=== PATIENT | male | born 1995 | race Caucasian/White ===

== ENCOUNTER 2018-06-24 17:30 | Inpatient (IN) | payer SELFPAY ==
[~2018-06-24] VITALS: Ht 165.1 cm; Wt 63.5 kg
--- NOTE | 2018-06-24 17:40 | NUR ---
CALLLED FOR TRIAGE AND UNABLE TO LOCATE PT IN WAITING ROOM
--- NOTE | 2018-06-24 18:10 | NUR ---
CALLED FOR TRIAGE, UNABLE TO LOCATE PT IN WAITING ROOM
--- NOTE | 2018-06-24 18:25 | NUR ---
CALLED FOR TRIAGE, UNABLE TO LOCATE PT IN ER WAITING ROOM
--- NOTE | 2018-06-24 18:53 | NUR ---
PT RETURNED TO ER WONDERING IF HIS NAME HAD BEEN CALLED. WILL TRIAGE SOON
[2018-06-24 19:02] VITALS: BP_SYST 120
--- NOTE | 2018-06-24 19:06 | NUR ---
Pt c/o redness, swelling, and open wound to right elbow x 3 days. Wound ~1cm diameter, scan serous fluid noted. Pt states that he noticed a black dot, didn't pay any attention to it, then 3 days ago, pulled off jacked and saw open wound.
--- NOTE | 2018-06-24 19:06 | NUR ---
Patient to ER bed 5 to gown for evaluation. Side rails up.
--- NOTE | 2018-06-24 19:20 | NUR ---
ER Dr. Arias at bedside examining patient.
[2018-06-24] MEDS ORDERED: CLINDAMYCIN 900 mg/50mL D5W 50 ML IV ONE ×2 (19:30→21:43)
[2018-06-24] MEDS ORDERED: NS 1000 ML IV.SOLN IV ONE (19:30)
[2018-06-24] MEDS ORDERED: IBUPROFEN 600 MG TABLET PO ONE (19:30)
--- NOTE | 2018-06-24 19:50 | NUR ---
# 20 gauge angiocath placed to LFA. Use of asceptic technique. Opsite placed over site. Blood return noted. Blood for lab drawn from site. Flushed with 10 cc of normal saline. No evidence of infiltration noted. Patient tolerated well.
[2018-06-24] MEDS ORDERED: ACETAMINOPHEN 325 MG TABLET PO PRN (20:15)
[2018-06-24] MEDS ORDERED: HYDROcodone/ACETAMIN 10-325 MG TAB PO SCH (20:30)
[2018-06-24] MEDS ORDERED: ONDANSETRON HCL 4 MG/2 ML VIAL IVP PRN (20:30)
--- NOTE | 2018-06-24 20:30 | NUR ---
Patient will be admitted to care of Tele. Admitted to Tele unit. Will go to room 117B. Belongings list completed. Summary report printed. Report will be given at bedside.
[2018-06-24 20:43] LABS: BASOPHILS % (AUTO) 0.5 % (0.0-2.0); EOSINOPHILS % (AUTO) 0.4 % (0.0-4.0); HEMATOCRIT 40.9 % (36-54); HEMOGLOBIN 13.8 g/dL (14.0-18.0); LYMPHOCYTES # (AUTO) 1.6 K/uL (1.0-5.5); LYMPHOCYTES % (AUTO) 15.6 % (20.5-51.5); MEAN CORPUSCULAR HEMOGLOBIN 32 pg (27-31); MEAN CORPUSCULAR HGB CONC 34 % (32-36); MEAN CORPUSCULAR VOLUME 95 fL (79.0-98.0); MONOCYTES # (AUTO) 0.6 K/uL (0.0-1.0); MONOCYTES % (AUTO) 5.9 % (1.7-9.3); NEUTROPHILS # (AUTO) 7.9 K/uL (1.8-7.7); NEUTROPHILS % (AUTO) 77.6 % (40.0-70.0); PLATELET COUNT (AUTO) 276 K/uL (130-430); RED BLOOD CELL COUNT(AUTO) 4.31 MIL/uL (4.2-6.2); RED CELL DISTRIBUTION WIDTH 13.2 % (9.0-15.0); WHITE BLOOD COUNT (AUTO) 10.1 K/uL (4.8-10.8)
--- NOTE | 2018-06-24 20:52 | NUR ---
ADMISSION NOTE Received patient from ER via zully, received report from Floyd SPEAR. Patient admitted with diagnosis of Cellulitis. Patient oriented to hospital routine, call light, toileting and safety-patient verbalized understanding.
[2018-06-24 20:53] LABS: CALCIUM 8.9 mg/dL (8.4-11.0); CREATININE 0.89 mg/dL (0.55-1.30); POTASSIUM 3.4 mmol/L (3.5-5.1)
--- NOTE | 2018-06-24 20:53 | NUR ---
CONSULTATION PAGED/CALLED Reason for Consultation: CELLULITIS Person Who was Notified:PEDRO Consulting Physician: DR. HAMPTON Passenger Conductor Specialty: ID Ordering Physician: ROSALIE
[2018-06-24 20:58] LABS: ALBUMIN 3.7 g/dL (3.4-4.8); TOTAL BILIRUBIN 1.1 mg/dL (0.0-1.0)
[2018-06-24 21:03] VITALS: BP_SYST 133
--- NOTE | 2018-06-24 21:40 | NUR ---
SCHEDULED NORCO PT GIVEN SCHEDULED NORCO 10-325 MG PO. MEDICATION ACTION AND POTENTIAL SIDE EFFECTS EXPLAINED, PT VERBALIZED UNDERSTANDING. PT ORIENTED TO USE OF CALL LIGHT AND ENCOURAGED TO CALL FOR ANY ASSISTANCE. SAFETY PRECAUTIONS IN PLACE. WILL MONITOR.
[2018-06-24] MEDS: NACL 0.9% 1,000 ML IV SCH (21:43)
--- NOTE | 2018-06-24 21:43 | NUR ---
SCHEDULED LEVAQUIN PT GIVEN SCHEDULED LEVAQUIN IVPB. MEDICATION AND POTENTIAL SIDE EFFECTS EXPLAINED. PT VERBALIZED UNDERSTANDING. NO S/S OF ACUTE DISTRESS, BREATHING IS UNLABORED TO ROOM AIR. SAFETY MAINTAINED. WILL MONITOR.
--- NOTE | 2018-06-24 22:30 | NUR ---
SNACKS/JUICE PT BROUGHT SANDWICHES, SUGAR-FREE CHOCOLATE PUDDING, AND APPLE JUICE PER REQUEST.
[2018-06-25] VITALS: BP_SYST 122
--- NOTE | 2018-06-25 00:52 | NUR ---
RN ROUNDS: PT RESTING IN BED WITH EYES CLOSED. VISIBLE SYMMETRICAL RISE AND FALL OF CHEST TO ROOM AIR. NO S/S OF ACUTE DISTRESS NOTED. IVF ARE INFUSING ORDERED WITH NO SIGN OF INFILTRATION AT IV SITE. PT APPEARS COMFORTABLE AT THIS TIME. SAFETY MAINTAINED. WILL MONITOR.
[2018-06-25] MEDS: NACL 0.9% 1,000 ML IV SCH ×3 (03:13→19:35)
--- NOTE | 2018-06-25 03:13 | NUR ---
IVF BAG CHANGED NEW BAG OF NORMAL SALINE HUNG AND INFUSING AT ORDERED RATE. NO SIGN OF INFILTRATION AT IV SITE. PT IS RESTING IN BED WITH EYES CLOSED. VISIBLE RISE AND FALL OF CHEST BILATERALLY TO ROOM AIR. NO S/S OF ACUTE DISTRESS, NO SOB NOTED. PT APPEARS COMFORTABLE. SAFETY PRECAUTIONS IN PLACE: BED LOCKED IN LOWEST POSITION, CALL LIGHT WITH PT, SIDE RAILS UP X2, PERSONAL ITEMS WITHIN REACH. WILL MONITOR.
[2018-06-25] MEDS: CLINDAMYCIN 900 mg/50mL D5W 50 ML IV SCH ×3 (06:02→22:55)
--- NOTE | 2018-06-25 06:17 | NUR ---
SCHEDULED CLIOCIN SCHEDULED CLIOCIN ADMINISTERED. PT RESTING IN BED. NO S/S OF DISTRESS, PT REPOSITIONED HIMSELF IN BED FOR COMFORT. SAFETY MAINTAINED. WILL MONITOR.
--- NOTE | 2018-06-25 06:48 | NUR ---
CLOSING NOTE PT RESTING IN BED, PT REPORTED HAVING SLEPT WELL. DRESSING TO ELBOW IS CLEAN, DRY AND INTACT. IV FLUIDS ARE INFUSING AT ORDERED RATE WITH NO SIGN OF INFILTRATION AT IV SITE. BREATHING IS EVEN AND UNLABORED TO ROOM AIR. NO S/S OF ACUTE DISTRESS. ALL NEEDS MET DURING SHIFT. SAFETY MAINTAINED. WILL ENDORSE CARE TO DAY SHIFT RN.
--- NOTE | 2018-06-25 07:55 | NUR ---
INITIAL NOTE RECEIVED PT IN BED, NO S/S OF DISTRESS OR SOB NOTED, PT HAS NO C/O PAIN AT THIS TIME, PT IN STABLE CONDITION. PT AAOX4, VERBAL. IV CATHETER PATENT, NO SIGNS OF INFECTION OR INFILTRATION NOTED. PT IN STABLE CONDITION, BED AT LOWEST POSITION, CALL LIGHT WITHIN REACH, WILL CONTINUE TO MONITOR PT FOR ANY CHANGES. FALL PRECAUTIONS IN PLACE.
--- NOTE | 2018-06-25 08:10 | NUR ---
CALL DR ROSALIE WORTHINGTON, AWAITING CALL BACK TO NOTIFY HIM THAT PT HAS PAIN ON LEFT ARM AND THAT IT IS SWOLLEN AND WARM TO TOUCH, PER PT HE HAD BLOOD DRAWN FROM THAT SITE AT [facility] A FEW DAYS AGO. Addendum: 06/25/18 at 0838 by Karina Perkins RN SPOKE WITH AND HE GAVE NEW ORDERS FOR PAIN MEDICATION AND ORDERED X RAY FOR LEFT ARM, PT ABLE TO MOVE FINGERS ON LEFT HAND, PULSE PALPABLE, SENSATION PRESENT, CAPILLARY REFILL LESS THAN 3 SECONDS, PULSE PALPABLE, NO PARALYSIS OR TINGLING PER PT.
[2018-06-25 08:13] VITALS: BP_SYST 138
[2018-06-25] MEDS: HYDROcodone/ACETAMIN 10-325 MG TAB PO PRN ×3 (08:52→21:01)
--- NOTE | 2018-06-25 10:20 | NUR ---
ROUNDS PT IN BED, NO S/S OF DISTRESS OR SOB NOTED, PT HAS NO C/O PAIN AT THIS TIME. PT IN STABLE CONDITION, PT WATCHING TV. WILL CONTINUE TO MONITOR PT FOR ANY CHANGES.
--- NOTE | 2018-06-25 10:41 | NUR ---
IV CATHETER PT REFUSED TO HAVE IV CATHETER CHANGED ON LEFT FOREARM DUE TO SWELLING AND RESULTS OF X RAY, NOTED NO SIGNS OF INFECTION OR INFILTRATION ON THE CATHETER SITE, THE SWELLING ABOVE THE FOREARM. EDUCATED PT ON CHANGING IT DUE TO POSSIBLY CAUSE OF THE SWELLING. PT VERBALIZED UNDERSTANDING BUT REFUSED.
--- NOTE | 2018-06-25 10:53 | NUR ---
SCD PT REFUSED TO HAVE SCD'S IN PLACE, EDUCATED PT ON IMPORTANCE ON USE OF SCD'S TO PREVENT DVT, PT STATED THAT HE WALKS SO DOES NOT NEED IT. PT VERBALIZED UNDERSTANDING BUT CONTINUES TO REFUSE.
--- NOTE | 2018-06-25 11:09 | NUR ---
WOUND CULTURE WOUND CULTURE SENT TO THE LAB OF WOUND ON RIGHT ELBOW
[2018-06-25] MEDS: VANCOMYCIN HCL 750 MG in NS 250 ML IV SCH ×2 (13:04→20:42)
--- NOTE | 2018-06-25 13:25 | NUR ---
VISITORS PT HAS VISITORS AT BEDSIDE, ASKED VISITORS IF THEY ARE LEAVING ANY NEW BELONGINGS FOR PT AND THEY STATED NO. CHARGE NURSE MADE AWARE.
[2018-06-25 13:50] VITALS: BP_SYST 145
--- NOTE | 2018-06-25 14:05 | NUR ---
ROUNDS PT IN BED, NO S/S OF DISTRESS OR SOB NOTED, PT HAS NO C/O PAIN AT THIS TIME. PT IN STABLE CONDITION, PT TALKING TO VISITORS AT BEDSIDE. WILL CONTINUE TO MONITOR PT FOR ANY CHANGES.
--- NOTE | 2018-06-25 14:10 | NUR ---
SMOKING PT SIGNED WAIVER FOR SMOKING, PT WENT OUTSIDE WITH FITTING ROOM ASSOCIATE AND ONE VISITOR TO SMOKE. Addendum: 06/25/18 at 1444 by Karina Perkins RN PT BACK FROM SMOKING WITH FITTING ROOM ASSOCIATE
--- NOTE | 2018-06-25 14:40 | NUR ---
WOUND EVALUATION: Late note for 1440 secondary to patient care. Wound Consult received from Dr. Millan. Thank you, Dr. Millan, for the consult. Patient received in a Merigold Bed with a mattress, awake, alert, and oriented. Patient is able to turn in bed independently. Naseem Score is a 22. Unknown past medical history. Admitted for progressively worsening, constant right elbow pain that is radiating to the right forearm with associated erythema and drainage. Recent Labs: CBC 10.1, RBC 4.31, hemoglobin 13.8, hematocrit 40.9, sodium 131, potassium 3.4, glucose 126, AST 90, ALT 591. Microbiology: Blood culture results 2 in progress. Wound culture results in progress. Intrinsic factors that delay wound healing: Hyperglycemia. Extrinsic factors that delay wound healing: None. Wound Assessment: 1. Right lateral elbow: Wound, probable abscess, present on admission. Wound bed has 95% yellow slough, 5% black tissue. No odor, scant yellow purulent drainage. Periwound intact. Surrounding tissue is erythematous. 1.5 cm x 1.3 cm. Recommend: Cleanse wound with normal saline. Apply sure prep to periwound. Apply Sultana sorb gel to wound bed, then hydrogel. Cover with foam dressing needed. Perform wound care daily, and as needed for dressing soiling or dislodgment. Elevate bilateral upper extremities for at least 30 minutes twice a day. 2. Left upper arm area: Erythema and mild calor, present on admission. Patient reports a lot of pain in this area, and says he can't move his arm. Patient was able to lift arm into flexion for assessment. No odor, no drainage. Erythematous area outlined with dots from a marker. Recommend: No dressing needed. Continue to monitor site every shift for worsening condition. Elevate bilateral upper extremities for at least 30 minutes twice a day. Also recommend: Encourage patient to self reposition every 2 hours with pillow support. Offload, elevate and float bilateral heels with pillows. Perform skin care and monitor skin integrity Q shift.
[2018-06-25 17:11] VITALS: BP_SYST 134
--- NOTE | 2018-06-25 18:30 | NUR ---
CLOSING NOTE PT IN BED, NO S/S OF DISTRESS OR SOB NOTED, PT HAS NO C/O PAIN AT THIS TIME, PT IN STABLE CONDITION. PT AAOX4, VERBAL. IV CATHETER PATENT, NO SIGNS OF INFECTION OR INFILTRATION NOTED. PT IN STABLE CONDITION, BED AT LOWEST POSITION, CALL LIGHT WITHIN REACH, WILL ENDORSE CARE OF PT TO INCOMING NURSE. FALL PRECAUTIONS IN PLACE.
--- NOTE | 2018-06-25 19:28 | NUR ---
Pt was received standing at his bedside fully awake, alert and oriented x3. No c/o pain or discomfort and no acute distress noted at this time. IV is intact in LFA without any signs of infiltration. Fall and safety precautions are in place. Pt was instructed to call for assistance as needed and pt verbalized understanding.
[2018-06-25 20:00] VITALS: BP_SYST 152
--- NOTE | 2018-06-25 23:00 | NUR ---
Pt is resting comfortably in bed. IVF is infusing well in LFA. Call light is with pt and bed is in the lowest and locked positions.
[2018-06-26] VITALS: BP_SYST 134
--- NOTE | 2018-06-26 01:45 | NUR ---
Pt is awake and being visited by his sister who brought outside food for their consumption. IVF is infusing well in [facility].
[2018-06-26] MEDS: NACL 0.9% 1,000 ML IV SCH ×2 (01:47→15:03)
[2018-06-26] MEDS: VANCOMYCIN HCL 750 MG in NS 250 ML IV SCH (03:21)
[2018-06-26] MEDS: HYDROcodone/ACETAMIN 10-325 MG TAB PO PRN ×3 (03:29→20:13)
--- NOTE | 2018-06-26 03:29 | NUR ---
[place] 10/325mg 1 tablet was given po per pt's request for c/o pain in right elbow and left upper arm with relief. IVF is infusing well in LFA. Fall and safety precautions are in place.
[2018-06-26] MEDS: CLINDAMYCIN 900 mg/50mL D5W 50 ML IV SCH ×3 (06:14→22:57)
--- NOTE | 2018-06-26 06:30 | NUR ---
Pt is awake and resting comfortably in bed. All pt's needs were attended to. IVF is infusing well in LFA. Will endorse to day shift nurse.
[2018-06-26 07:02] LABS: BASOPHILS % (AUTO) 0.3 % (0.0-2.0); EOSINOPHILS # (AUTO) 0.3 K/uL (0.0-0.4); EOSINOPHILS % (AUTO) 3.3 % (0.0-4.0); LYMPHOCYTES # (AUTO) 2.3 K/uL (1.0-5.5); LYMPHOCYTES % (AUTO) 28.1 % (20.5-51.5); MEAN CORPUSCULAR HEMOGLOBIN 33 pg (27-31); MEAN CORPUSCULAR HGB CONC 34 % (32-36); MEAN CORPUSCULAR VOLUME 95 fL (79.0-98.0); MONOCYTES # (AUTO) 0.7 K/uL (0.0-1.0); MONOCYTES % (AUTO) 9.1 % (1.7-9.3); NEUTROPHILS # (AUTO) 4.9 K/uL (1.8-7.7); NEUTROPHILS % (AUTO) 59.2 % (40.0-70.0); PLATELET COUNT (AUTO) 222 K/uL (130-430); RED BLOOD CELL COUNT(AUTO) 3.99 MIL/uL (4.2-6.2); RED CELL DISTRIBUTION WIDTH 13.1 % (9.0-15.0); WHITE BLOOD COUNT (AUTO) 8.2 K/uL (4.8-10.8)
--- NOTE | 2018-06-26 07:32 | NUR ---
INITIAL NOTE RECEIVED PT IN BED, NO S/S OF DISTRESS OR SOB NOTED, PT HAS NO C/O PAIN AT THIS TIME, PT IN STABLE CONDITION. PT AAOX4, VERBAL. IV CATHETER PATENT, NO SIGNS OF INFECTION OR INFILTRATION NOTED. PT IN STABLE CONDITION, BED AT LOWEST POSITION, CALL LIGHT WITHIN REACH, WILL CONTINUE TO MONITOR PT FOR ANY CHANGES. FALL PRECAUTIONS IN PLACE. PT REFUSED TO HAVE SCD'S IN PLACE, EDUCATED PT ON IMPORTANCE TO PREVENT DVT, PT VERBALIZED UNDERSTANDING BUT CONTINUES TO REFUSE. Addendum: 06/26/18 at 0733 by Karina Perkins RN IV ON LEFT FOREARM, NO INFILTRATION NOTED, PATENT.
[2018-06-26 07:43] LABS: ALBUMIN 2.6 g/dL (3.4-4.8); CALCIUM 8.6 mg/dL (8.4-11.0); CREATININE 0.59 mg/dL (0.55-1.30); POTASSIUM 3.1 mmol/L (3.5-5.1); TOTAL BILIRUBIN 0.4 mg/dL (0.0-1.0)
[2018-06-26 08:22] VITALS: BP_SYST 109
[2018-06-26] MEDS: SILVER 44.4 ML GEL.ER.ML. TP SCH (10:09)
--- NOTE | 2018-06-26 10:54 | NUR ---
ROUNDS PT IN BED, NO S/S OF DISTRESS OR SOB NOTED, PT HAS NO C/O PAIN AT THIS TIME, PT IN STABLE CONDITION, PT RESTING COMFORTABLY, WILL CONTINUE TO MONITOR PT FOR ANY CHANGES.
--- NOTE | 2018-06-26 11:44 | NUR ---
Rubber Goods Inspector Tester Note SPED TEACHER met with patient at bedside due to history of meth use and conducted a Discharge Plan Assessment. Patient is alert and oriented. SPED TEACHER suspected patient may be homeless, but patient insists he lives at the address on the face sheet with a roommate, [address] [facility], [address] SPED TEACHER explained that this was 39 miles or one hour away, and we could not provide transportation there. Patient was unsure if his friends or family could transport him. He has no money but could use a bus pass. He stated that he has friends and family that offer to help, but they have problems of their own. He provided a person to notify: Makenna Valdes, sister, , which was sent to Admitting to add to patient's face sheet. Patient stated he had no primary physician and accepted the list of [facility] clinics on the homeless resource sheet, so that he could obtain follow up care. Patient stated he has no money for medication. SPED TEACHER discussed with Yolette SPEAR the possibility of discharging patient with the medication as prescribed. Patient admitted to using meth in the past but denies that he is currently using and did not accept substance abuse resources. Rubber Goods Inspector Tester/Case Management/Discharge Planning will remain available.
[2018-06-26 12:26] VITALS: BP_SYST 121
--- NOTE | 2018-06-26 12:31 | NUR ---
Dietitian Recommendations *Recommend Regular diet w/ Michael BID. (Provides 160 kcal and 5 gm protein daily). Please see Nutritional Assessment for details. SHUKRI, RD
[2018-06-26] MEDS: VANCOMYCIN HCL 1,000 MG in NS 250 ML IV SCH ×2 (12:54→20:13)
[2018-06-26 16:09] VITALS: BP_SYST 140
[2018-06-26] MEDS ORDERED: POTASSIUM CHLORIDE 20 MEQ TAB.PRT.SR PO ONE (17:15)
--- NOTE | 2018-06-26 17:19 | NUR ---
CONSULT GI ABN LFT DR HUI [phone] DR COLINDRES POKER SUPERVISOR S/[facility] EXCHANGE
--- NOTE | 2018-06-26 18:27 | NUR ---
CLOSING NOTE PT IN BED, NO S/S OF DISTRESS OR SOB NOTED, PT HAS NO C/O PAIN AT THIS TIME, PT IN STABLE CONDITION. PT AAOX4, VERBAL. IV CATHETER PATENT, NO SIGNS OF INFECTION OR INFILTRATION NOTED, PATENT, NO REDNESS ON SITE NOTED, NO CHANGE IN REDNESS ON LEFT UPPER ARM. PT IN STABLE CONDITION, BED AT LOWEST POSITION, CALL LIGHT WITHIN REACH, WILL ENDORSE CARE OF PT TO INCOMING NURSE. FALL PRECAUTIONS IN PLACE. PT REFUSED TO HAVE SCD'S IN PLACE, EDUCATED PT ON IMPORTANCE TO PREVENT DVT, PT VERBALIZED UNDERSTANDING BUT CONTINUES TO REFUSE.
--- NOTE | 2018-06-26 19:25 | NUR ---
Pt was received lying comfortably in bed fully awake, alert and oriented x3. No c/o pain or discomfort and no acute distress noted at this time. Saline lock is intact in LFA without any signs of infiltration. Fall and safety precautions are in place. Pt was instructed to call for assistance as needed and pt verbalized understanding.
[2018-06-26 20:00] VITALS: BP_SYST 150
[2018-06-26] MEDS: POTASSIUM CHLORIDE 20 MEQ TAB.PRT.SR PO SCH (20:11)
--- NOTE | 2018-06-26 20:13 | NUR ---
[place] 10/325mg 1 tablet was given po per pt's request for c/o pain in rt elbow and left upper arm with relief.
--- NOTE | 2018-06-26 20:55 | NUR ---
Rt elbow dressing change was done per pt's request due to small soilage noted on the dressing. Wound was noted with small amount of yellowish purulent drainage. Periwound is intact. Wound bed has 95% yellow tissue and 5% black tissue. No odor noted. Surrounding tissue noted with erythema. Wound was cleansed with normal saline and pat dried. Cara wound was cleansed with sure prep. Silvasorb gel was applied to wound bed, followed by hydrogel to wound bed and wound was covered with foam dressing. Pt tolerated dressing change well.
--- NOTE | 2018-06-26 23:30 | NUR ---
Pt is resting comfortably in bed. Saline lock is intact in LFA. Call light is with pt and bed is in the lowest and locked positions.
[2018-06-27 01:22] VITALS: BP_SYST 131
--- NOTE | 2018-06-27 01:30 | NUR ---
Pt is sleeping without any distress noted. Fall and safety precautions are in place.
--- NOTE | 2018-06-27 03:30 | NUR ---
Pt is sleeping without any distress noted. Fall and safety precautions are in place.
[2018-06-27] MEDS: VANCOMYCIN HCL 1,000 MG in NS 250 ML IV SCH ×2 (04:37→13:41)
--- NOTE | 2018-06-27 04:50 | NUR ---
Rt elbow dressing change was done due to moderate amount of soilage seen on the dressing. Dressing removed had moderate amount of pinkish and small amount of purulent drainage on it. Wound was noted with small amount of purulent drainage and moderate amount of pinkish drainage. Periwound is intact. Wound bed has 80% yellow tissue and 20% pinkish tissue. No odor noted. Surrounding tissue noted with erythema. Wound was cleansed with normal saline and pat dried. Cara wound was cleansed with sure prep. Silvasorb gel was applied to wound bed, followed by hydrogel to wound bed and wound was covered with foam dressing. Pt tolerated dressing change well.
[2018-06-27 06:29] LABS: BASOPHILS % (AUTO) 0.3 % (0.0-2.0); EOSINOPHILS # (AUTO) 0.1 K/uL (0.0-0.4); EOSINOPHILS % (AUTO) 1.1 % (0.0-4.0); HEMATOCRIT 42.3 % (36-54); HEMOGLOBIN 14.5 g/dL (14.0-18.0); LYMPHOCYTES # (AUTO) 1.6 K/uL (1.0-5.5); LYMPHOCYTES % (AUTO) 19.1 % (20.5-51.5); MEAN CORPUSCULAR HEMOGLOBIN 32 pg (27-31); MEAN CORPUSCULAR HGB CONC 34 % (32-36); MEAN CORPUSCULAR VOLUME 95 fL (79.0-98.0); MONOCYTES # (AUTO) 0.6 K/uL (0.0-1.0); MONOCYTES % (AUTO) 7.1 % (1.7-9.3); NEUTROPHILS # (AUTO) 6.2 K/uL (1.8-7.7); NEUTROPHILS % (AUTO) 72.4 % (40.0-70.0); PLATELET COUNT (AUTO) 320 K/uL (130-430); RED BLOOD CELL COUNT(AUTO) 4.46 MIL/uL (4.2-6.2); RED CELL DISTRIBUTION WIDTH 13.1 % (9.0-15.0); WHITE BLOOD COUNT (AUTO) 8.6 K/uL (4.8-10.8)
--- NOTE | 2018-06-27 06:30 | NUR ---
Pt is awake and resting comfortably in bed. All pt's needs were attended to. No fall or injury noted this shift. Saline lock is intact in LFA. Rt elbow dressing is dry and intact. Will endorse to day shift nurse.
[2018-06-27] MEDS: CLINDAMYCIN 900 mg/50mL D5W 50 ML IV SCH ×2 (06:45→15:28)
[2018-06-27 07:24] LABS: ALBUMIN 3.6 g/dL (3.4-4.8); CALCIUM 9.7 mg/dL (8.4-11.0); CREATININE 0.6 mg/dL (0.55-1.30); POTASSIUM 3.8 mmol/L (3.5-5.1); TOTAL BILIRUBIN 0.6 mg/dL (0.0-1.0)
[2018-06-27 08:05] VITALS: BP_SYST 133
--- NOTE | 2018-06-27 08:05 | NUR ---
OPENING NOTES patient received resting in bed A&O x4, patient ambulated to bathroom with steady gait, patient denies any acute distress or pain at this time, educated patient on plan of care and call light system, NPO status in place, for ultra sound, will continue to monitor, safety precautions in place call light within reach.
--- NOTE | 2018-06-27 10:26 | NUR ---
NOTES patient ambulated to bathroom with steady gait, ultrasound is done at this time, no acute distress or pain is noted, breathing is even and unlabored on room air, family at bedside, will continue to monitor, safety precautions in place, call light within reach.
[2018-06-27] MEDS: SILVER 44.4 ML GEL.ER.ML. TP SCH (10:39)
[2018-06-27] MEDS: POTASSIUM CHLORIDE 20 MEQ TAB.PRT.SR PO SCH (10:39)
--- NOTE | 2018-06-27 12:20 | NUR ---
NOTES patient is resting in bed with family, patient denies any acute distress or pain at this time, breathing is even and unlabored on room air, will continue to monitor, safety precautions in place, call light within reach.
[2018-06-27 12:30] VITALS: BP_SYST 125
--- NOTE | 2018-06-27 14:34 | NUR ---
NOTES patient is resting in chair at bedside, patient denies any acute distress or pain, breathing is even and unlabored on room air, IVF infusing as ordered, will continue to monitor, safety precautions in place, call light within reach.
[2018-06-27] MEDS: HYDROcodone/ACETAMIN 10-325 MG TAB PO PRN (15:27)
--- NOTE | 2018-06-27 16:31 | NUR ---
WOUND CARE pictures taken, cleansed with NS, applied silvabsorb, sureprep, and foam dressing, patient tolerated well with no acute distress, will continue to monitor, safety precautions in place, call light within reach, friend at bedside.
[2018-06-27 16:56] VITALS: BP_SYST 106
[2018-06-27 17:07] VITALS: BP_SYST 106
[2018-06-27] MEDS ORDERED: HYDR-4272 PO (17:18)
[2018-06-27] MEDS ORDERED: CLIN300C11 PO (17:19)
[2018-06-27] MEDS ORDERED: POTA10TA11 PO (17:19)
[2018-06-27] MEDS ORDERED: CEPH-568 PO (17:20)
[2018-06-27] MEDS ORDERED: L.RH1CAP PO (17:20)
--- NOTE | 2018-06-27 17:53 | NUR ---
D/C Patient Patient given medication reconciliation form and D/C instructions. Exit Care provided. Patient verbalized understanding. MD discussed with patient the results and treatment provided. Ambulatory with steady gait for discharge to home. Patient in stable condition, ID band removed. IV catheter removed, intact and dressing applied, no active bleeding. Rx of keflex, probiotic, clindamycin, norco, and k-dur given. Patient educated on pain management. All belongings sent with patient.
== END 2018-06-27 17:55 | disposition home or self-care (01) | DRG 558 ==
LOC: SED 17:30 → STU 20:07 → SMU 06-25 13:33
PROVIDERS: ADMIT Internal Medicine; ATTEND Internal Medicine
DX: M70.21 Olecranon bursitis, right elbow (principal); L03.114 Cellulitis of left upper limb; R78.81 Bacteremia; L02.413 Cutaneous abscess of right upper limb; Z88.8 Allergy status to other drugs, medicaments and biological substances; F15.10 Other stimulant abuse, uncomplicated; F17.210 Nicotine dependence, cigarettes, uncomplicated; B19.20 Unspecified viral hepatitis C without hepatic coma; M60.9 Myositis, unspecified; Y93.89 Activity, other specified
CPT/HCPCS: 36415; 73060-TC; 73090; 76700-TC; 80053; 80202-TC; 83605; 85025; 87040-TC; 87070-TC; 87186-TC; 93005; 96361; 99285; A6261; G0378; J1956; J3370; J3490; J7030; J7050

== ENCOUNTER 2018-06-28 23:54 | Emergency (ER) | payer SELFPAY ==
[~2018-06-28] VITALS: Ht 165.1 cm; Wt 63.5 kg
[~2018-06-28 23:54] MED LIST: CEPH-568 PO; CLIN300C11 PO; HYDR-4272 PO; L.RH1CAP PO; POTA10TA11 PO
[2018-06-29] VITALS: BP_SYST 140
[2018-06-29 01:10] VITALS: BP_SYST 140
[2018-06-29] MEDS ORDERED: cefTRIAXone 1 GM VIAL IM ONE (02:00)
[2018-06-29 02:10] LABS: BASOPHILS # (AUTO) 0.1 K/uL (0.0-0.2); BASOPHILS % (AUTO) 0.7 % (0.0-2.0); EOSINOPHILS # (AUTO) 0.3 K/uL (0.0-0.4); EOSINOPHILS % (AUTO) 3.2 % (0.0-4.0); HEMATOCRIT 42.7 % (36-54); HEMOGLOBIN 14.5 g/dL (14.0-18.0); LYMPHOCYTES # (AUTO) 2.1 K/uL (1.0-5.5); LYMPHOCYTES % (AUTO) 25.4 % (20.5-51.5); MEAN CORPUSCULAR HEMOGLOBIN 32 pg (27-31); MEAN CORPUSCULAR HGB CONC 34 % (32-36); MEAN CORPUSCULAR VOLUME 94 fL (79.0-98.0); MONOCYTES # (AUTO) 0.7 K/uL (0.0-1.0); MONOCYTES % (AUTO) 8.8 % (1.7-9.3); NEUTROPHILS # (AUTO) 5.1 K/uL (1.8-7.7); NEUTROPHILS % (AUTO) 61.9 % (40.0-70.0); PLATELET COUNT (AUTO) 349 K/uL (130-430); RED BLOOD CELL COUNT(AUTO) 4.53 MIL/uL (4.2-6.2); RED CELL DISTRIBUTION WIDTH 12.6 % (9.0-15.0); WHITE BLOOD COUNT (AUTO) 8.2 K/uL (4.8-10.8)
[2018-06-29 02:21] LABS: CALCIUM 9.6 mg/dL (8.4-11.0); CREATININE 0.66 mg/dL (0.55-1.30); POTASSIUM 3.5 mmol/L (3.5-5.1)
[2018-06-29 02:26] LABS: ALBUMIN 3.7 g/dL (3.4-4.8); C-REACTIVE PROTEIN QUANT 3.7 mg/dL (0-0.5); TOTAL BILIRUBIN 0.6 mg/dL (0.0-1.0)
== END 2018-06-29 02:10 | disposition left against medical advice (07) ==
LOC: SED 23:54
DX: M25.521 Pain in right elbow (principal); Z86.19 Personal history of other infectious and parasitic diseases; Z88.8 Allergy status to other drugs, medicaments and biological substances; Z79.899 Other long term (current) drug therapy
CPT/HCPCS: 36415; 73070; 73090; 80053; 85025; 86140; 99284; J0696

== ENCOUNTER 2020-09-09 17:36 | Emergency (ER) | payer SELFPAY ==
[~2020-09-09] VITALS: Ht 165.1 cm; Wt 61.2 kg
[~2020-09-09 17:36] MED LIST changes: -CLIN300C11 PO; +CLIN300C12 PO
[2020-09-09 17:56] VITALS: BP_SYST 132
[2020-09-09] MEDS ORDERED: CEPH250C PO (19:50)
[2020-09-09] MEDS ORDERED: cephALEXin 500 MG CAPSULE PO ONE (20:00)
[2020-09-09 20:10] VITALS: BP_SYST 132
== END 2020-09-09 20:10 | disposition home or self-care (01) ==
LOC: SED 17:36
DX: L02.11 Cutaneous abscess of neck (principal); F11.90 Opioid use, unspecified, uncomplicated; F12.90 Cannabis use, unspecified, uncomplicated; F15.90 Other stimulant use, unspecified, uncomplicated; F17.290 Nicotine dependence, other tobacco product, uncomplicated; Z71.6 Tobacco abuse counseling; Z88.8 Allergy status to other drugs, medicaments and biological substances; Z79.899 Other long term (current) drug therapy
CPT/HCPCS: 99283